=== PATIENT | male | born 1970 | race Caucasian/White ===

== ENCOUNTER 2016-09-13 12:23 | Emergency (ER) | payer OTHER ==
[~2016-09-13] VITALS: Ht 175.3 cm; Wt 75.0 kg
[2016-09-13 12:32] VITALS: Ht 175.3 cm; Wt 75.0 kg
[2016-09-13] MEDS ORDERED: LIDOCAINE 2% (MDV) 20 ML INJ INJ STA (12:58)
[2016-09-13] MEDS ORDERED: HYDROCODONE/APAP (10/325) TAB PO ONE (13:00)
[2016-09-13] MEDS ORDERED: DIPHTH/TET/ACEL PERTUSS (ADULT) 0.5 ML VIAL IM* ONE (13:00)
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
[2016-09-13] MEDS ORDERED: IBUP800T25 PO (14:12)
[2016-09-13] MEDS ORDERED: HYDR-906 PO (14:12)
[2016-09-13 15:12] VITALS: BP 135/92; PULSE 69; RESP 16; TEMP 98.7
== END 2016-09-13 15:11 | disposition home or self-care (01) ==
LOC: E/R 12:23 → FTE 15:11
DX: S01.81XA Laceration without foreign body of other part of head, initial encounter (principal); S40.012A Contusion of left shoulder, initial encounter; Y08.02XA Assault by strike by baseball bat, initial encounter; Y92.9 Unspecified place or not applicable; Z23 Encounter for immunization
CPT/HCPCS: 12013; 70450; 73030; 90471; 90715; Z7502; Z7610

== ENCOUNTER 2016-09-19 15:32 | Emergency (ER) | payer OTHER ==
[~2016-09-19] VITALS: Ht 185.4 cm; Wt 80.0 kg
[~2016-09-19 15:32] MED LIST: HYDR-906 PO; IBUP800T25 PO
[2016-09-19 15:35] VITALS: Ht 185.4 cm; Wt 80.0 kg
[2016-09-19] MEDS ORDERED: NEOM1PAC TP (16:16)
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
== END 2016-09-19 16:35 | disposition home or self-care (01) ==
LOC: FTE 15:32
DX: L29.9 Pruritus, unspecified (principal); Z48.02 Encounter for removal of sutures; Z87.891 Personal history of nicotine dependence
CPT/HCPCS: 99283